=== PATIENT | male | born 1985 | race Two or more races ===

== ENCOUNTER → 2019-11-09 | Emergency (ER) | payer OTHER ==
[~2019-11-09] MED LIST: CYCLOBENZAPRINE 10MG TABLET As Ordered ONE; CYCLOBENZAPRINE 10MG TABLET ONE; KETOROLAC 30 MG/ML 1ML VIAL As Ordered ONE; KETOROLAC 30 MG/ML 1ML VIAL ONE
== END | disposition home or self-care (01) ==
LOC: M ED 11-08 08:40
DX: M79.621 Pain in right upper arm (principal); R51 Headache; I10 Essential (primary) hypertension; Z88.6 Allergy status to analgesic agent; Z79.899 Other long term (current) drug therapy
CPT/HCPCS: 70450; 96374; 99284; J1885